=== PATIENT | male | born 1965 | race Caucasian/White ===

== ENCOUNTER → 2016-10-10 | Outpatient (CLI) | payer OTHER ==
[~2016-10-10] MED LIST: BAYER CHEWABLE81 MG PO; CITALOPRAM HBR40 M1 PO; CLARITIN10 M3 PO; CO Q10100 MG PO; COREG3.125 MG PO; DARVOCET-N 1001 TAB PO; FISH OIL 1,001000 M1 PO; FLEXERIL PO; GLYXAMBI 25 MG1 EACH PO; KETOPROFEN PO; KLONOPIN0.5 MG PO; LORTAB 7.5-5001 TAB PO; SIMVASTATIN40 MG PO; SYNTHROID0.05 MG PO; VITAMIN B122500 MCG PO; VITAMIN D50000 UNIT PO
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
== END | disposition home or self-care (01) ==
LOC: CNUC 08:10
DX: M48.56XA Collapsed vertebra, not elsewhere classified, lumbar region, initial encounter for fracture (principal); M48.54XA Collapsed vertebra, not elsewhere classified, thoracic region, initial encounter for fracture; R93.7 Abnormal findings on diagnostic imaging of other parts of musculoskeletal system; M47.899 Other spondylosis, site unspecified
CPT/HCPCS: 78306; A9503